=== PATIENT | female | born 1945 | race Caucasian/White ===

== ENCOUNTER 2023-09-14 09:47 | Emergency (ER) | payer MEDICARE, OTHER ==
[2023-09-14] MEDS ORDERED: Ketamine 200 MG/20 ML MDV IVPUSH ONE ×2 (10:21→10:22)
[2023-09-14] MEDS: LORazepam 2 MG/ML SDV IVPUSH ONE (10:29)
[2023-09-14 13:25] VITALS: BP 146/60; PULSE 56
== END 2023-09-14 13:29 | disposition home or self-care (01) ==
LOC: CC.ED 09:47
DX: S43.005A Unspecified dislocation of left shoulder joint, initial encounter (principal); E03.9 Hypothyroidism, unspecified; I10 Essential (primary) hypertension; Z88.5 Allergy status to narcotic agent; Z79.899 Other long term (current) drug therapy; W18.30XA Fall on same level, unspecified, initial encounter
CPT/HCPCS: 23650; 73020-LT; 73030-LT; 73060-LT; 73080-LT; 96374; 99283-25; J2060; J3490

== ENCOUNTER 2024-01-21 13:19 | Inpatient (IN) | payer MEDICARE, OTHER ==
[2024-01-21 13:32] LABS: BASOPHILS ABSOLUTE AUTO 0.03 10^3/uL (0.00-0.50); BASOPHILS PERCENT AUTO 0.4 % (0-1); EOSINOPHILS ABSOLUTE AUTO 0.24 10^3/uL (0.00-1.50); EOSINOPHILS PERCENT AUTO 3.2 % (0-6); HEMATOCRIT 38.3 % (37.0-47.0); HEMOGLOBIN 12.7 g/dL (12.0-16.0); IMMATURE GRAN ABSOLUTE AUTO 0.02 10^3/uL (0.00-0.49); IMMATURE GRAN PERCENT AUTO 0.3 % (0.0-4.9); LYMPHOCYTES ABSOLUTE AUTO 2.71 10^3/uL (0.60-5.00); LYMPHOCYTES PERCENT AUTO 36.6 % (24-44); MEAN CORPUSCULAR HEMOGLOBIN 31.5 pg (27.0-32.0); MEAN CORPUSCULAR HGB CONC 33.2 g/dL (32.0-36.0); MONOCYTES ABSOLUTE AUTO 0.72 10^3/uL (0.00-1.50); MONOCYTES PERCENT AUTO 9.7 % (0-10); NEUTROPHILS ABSOLUTE AUTO 3.68 x10^3/uL (1.80-8.00); NEUTROPHILS PERCENT AUTO 49.8 % (41-71); PLATELET COUNT,PLT 198 10^3/uL (150-400); RED BLOOD CELL COUNT 4.03 x10^6/uL (4.00-5.50); WHITE BLOOD CELL COUNT,WBC 7.4 10^3/uL (4.0-11.0)
[2024-01-21 13:36] LABS: APPEARANCE,URINE SLIGHTLY CLOUDY (CLEAR); BILIRUBIN,URINE NEGATIVE (NEGATIVE); COLOR,URINE YELLOW (YELLOW); GLUCOSE,URINE NEGATIVE (NEGATIVE); KETONES,URINE NEGATIVE (NEGATIVE); LEUKOCYTE ESTERASE,URINE SMALL (NEGATIVE); NITRITE,URINE NEGATIVE (NEGATIVE); OCCULT BLOOD,URINE NEGATIVE (NEGATIVE); PROTEIN,URINE NEGATIVE (NEGATIVE); UROBILINOGEN,URINE 0.2 EU/dL (0.2-1.0)
[2024-01-21 13:50] LABS: BACTERIA,URINE MODERATE /HPF (NOT SEEN); EPITHELIAL CELLS,URINE MANY /HPF (NOT SEEN); RBC,URINE 0-5 /HPF (0-5)
[2024-01-21 15:00] LABS: ALANINE AMINOTRANSFERASE,ALT 24 U/L (12-78); ALKALINE PHOSPHATASE 75 U/L (46-116); ASPARTATE AMNIOTRANSFERASE,AST 22 U/L (15-37); BILIRUBIN TOTAL 0.4 mg/dL (0.0-1.0); BLOOD UREA NITROGEN,BUN 20 mg/dL (7-18); CALCIUM 9.6 mg/dL (8.4-10.1); CARBON DIOXIDE,CO2 28 mmol/L (21-32); CREATININE 0.7 mg/dL (0.6-1.0); EST CRCL DRUG DOSING (CG) 53.23 mL/min; GLUCOSE RANDOM 115 mg/dL (75-99); PRO B-TYPE NATRIUR PEPT,BNPPRO 1478 pg/mL (0-1000); PROTEIN TOTAL,TP 7.4 g/dL (6.4-8.2); T4 FREE 1.5 ng/dL (0.8-1.6); TSH ULTRASENSITIVE 0.01 uIU/mL (0.36-5.60)
[2024-01-21 15:02] LABS: C-REACTIVE PROTEIN < 0.50 mg/dL (<=0.50); ESTIMATED GFR 89 mL/min (>=60)
[2024-01-21] MEDS ORDERED: Docusate Sodium 100 MG Cap PO PRN (15:25)
[2024-01-21] MEDS ORDERED: Acetaminophen 325 MG Tab PO PRN (15:25)
[2024-01-21] MEDS ORDERED: Polyethylene Glycol 3350 Powder 17 GM Packet PO PRN (15:25)
[2024-01-21] MEDS ORDERED: Ondansetron 4 MG Tab.DIS PO PRN (15:25)
[2024-01-21] MEDS ORDERED: Ondansetron 4 MG/2 ML SDV IV PRN (15:25)
[2024-01-21] MEDS: Diltiazem 25 MG/5 ML SDV IVPUSH ONE (15:40)
[2024-01-21] MEDS: Diltiazem 100 MG in Sodium Chloride 0.9% 100 ML IV SCH (16:09)
[2024-01-21] MEDS: Apixaban 5 MG Tab PO SCH (19:32)
[2024-01-21] MEDS: Diltiazem 120 MG Cap.CD PO SCH (22:48)
[2024-01-22 07:56] LABS: BASOPHILS ABSOLUTE AUTO 0.03 10^3/uL (0.00-0.50); BASOPHILS PERCENT AUTO 0.4 % (0-1); EOSINOPHILS ABSOLUTE AUTO 0.29 10^3/uL (0.00-1.50); HEMATOCRIT 35.9 % (37.0-47.0); HEMOGLOBIN 11.8 g/dL (12.0-16.0); IMMATURE GRAN ABSOLUTE AUTO 0.01 10^3/uL (0.00-0.49); IMMATURE GRAN PERCENT AUTO 0.1 % (0.0-4.9); LYMPHOCYTES ABSOLUTE AUTO 2.19 10^3/uL (0.60-5.00); LYMPHOCYTES PERCENT AUTO 30.2 % (24-44); MEAN CORPUSCULAR HEMOGLOBIN 31.4 pg (27.0-32.0); MEAN CORPUSCULAR HGB CONC 32.9 g/dL (32.0-36.0); MEAN CORPUSCULAR VOLUME 95.5 fL (83.0-97.0); MONOCYTES ABSOLUTE AUTO 0.63 10^3/uL (0.00-1.50); MONOCYTES PERCENT AUTO 8.7 % (0-10); NEUTROPHILS ABSOLUTE AUTO 4.11 x10^3/uL (1.80-8.00); NEUTROPHILS PERCENT AUTO 56.6 % (41-71); PLATELET COUNT,PLT 176 10^3/uL (150-400); RED BLOOD CELL COUNT 3.76 x10^6/uL (4.00-5.50); WHITE BLOOD CELL COUNT,WBC 7.3 10^3/uL (4.0-11.0)
[2024-01-22] MEDS ORDERED: Non-Formulary Medication 1 Each (Fish Oil/Omega-3 Fatty Acids [Fish Oil 1,000 Mg] 1 GM Cap PO SCH (08:00)
[2024-01-22] MEDS: Levothyroxine 112 MCG Tab PO SCH (08:03)
[2024-01-22 08:16] LABS: ALBUMIN 3.5 g/dL (3.4-5.0); BILIRUBIN TOTAL 0.4 mg/dL (0.0-1.0); CALCIUM 9.1 mg/dL (8.4-10.1); CREATININE 0.6 mg/dL (0.6-1.0); EST CRCL DRUG DOSING (CG) 62.1 mL/min; MAGNESIUM 1.7 mg/dL (1.8-2.4); POTASSIUM,K 4.1 mEq/L (3.5-5.0); PROTEIN TOTAL,TP 6.8 g/dL (6.4-8.2)
[2024-01-22] MEDS: Cholecalciferol (Vitamin D3) 25 MCG Tab PO SCH (08:22)
[2024-01-22] MEDS: Multivitamin Tab PO SCH (08:22)
[2024-01-22] MEDS: Vitamin E (dl-alpha-tocopherol acetate) 400 Unit Cap PO SCH (08:22)
[2024-01-22] MEDS: Beta-Carotene (Vitamin A) w/Vitamin C & E plus Minerals Tab PO SCH (08:23)
[2024-01-22] MEDS: Magnesium Oxide 400 MG Tab PO SCH (08:23)
[2024-01-22 11:18] LABS: CHLORIDE,CL 103 mEq/L (98-106); POTASSIUM,K 4.6 mEq/L (3.5-5.0); SODIUM,NA 139 mEq/L (136-145)
[2024-01-22 11:23] VITALS: BP 139/73; PULSE 69
[2024-01-22] MEDS ORDERED: Diltiazem 120 MG Cap.CD PO SCH (20:00)
== END 2024-01-22 11:00 | disposition home or self-care (01) | DRG 310 ==
LOC: CC.FCMC 13:19 → UNDOADMIN 14:07 → CC.MS 14:07 → UNDOADMIN 15:25
PROVIDERS: ADMIT Physician Assistant Medical; ATTEND Nurse Practitioner
DX: I48.91 Unspecified atrial fibrillation (principal); I10 Essential (primary) hypertension; Z66 Do not resuscitate; E03.9 Hypothyroidism, unspecified; Z79.01 Long term (current) use of anticoagulants; Z79.899 Other long term (current) drug therapy; Z88.5 Allergy status to narcotic agent; Z90.710 Acquired absence of both cervix and uterus; Z79.890 Hormone replacement therapy
CPT/HCPCS: 36415; 80053; 81001; 83735; 83880; 84439; 84443; 84484; 85025; 85730; 86140; 93005; 93010; A9270-GY; J3490

== ENCOUNTER 2025-02-01 09:25 | Emergency (ER) | payer MEDICARE, OTHER ==
[2025-02-01 09:43] LABS: BASOPHILS ABSOLUTE AUTO 0.03 10^3/uL (0.00-0.50); BASOPHILS PERCENT AUTO 0.2 % (0-1); EOSINOPHILS ABSOLUTE AUTO 0.05 10^3/uL (0.00-1.50); EOSINOPHILS PERCENT AUTO 0.4 % (0-6); IMMATURE GRAN PERCENT AUTO 0.8 % (0.0-4.9); LYMPHOCYTES ABSOLUTE AUTO 2.88 10^3/uL (0.60-5.00); LYMPHOCYTES PERCENT AUTO 23.2 % (24-44); MEAN CORPUSCULAR HEMOGLOBIN 32.5 pg (27.0-32.0); MEAN CORPUSCULAR HGB CONC 33.7 g/dL (32.0-36.0); MEAN CORPUSCULAR VOLUME 96.6 fL (83.0-97.0); MONOCYTES ABSOLUTE AUTO 0.87 10^3/uL (0.00-1.50); NEUTROPHILS ABSOLUTE AUTO 8.48 x10^3/uL (1.80-8.00); NEUTROPHILS PERCENT AUTO 68.4 % (41-71); PLATELET COUNT,PLT 164 10^3/uL (150-400); RED BLOOD CELL COUNT 2.06 x10^6/uL (4.00-5.50); WHITE BLOOD CELL COUNT,WBC 12.4 10^3/uL (4.0-11.0)
[2025-02-01 09:46] LABS: HEMATOCRIT 19.9 % (37.0-47.0); HEMOGLOBIN 6.7 g/dL (12.0-16.0)
[2025-02-01 09:56] LABS: ALBUMIN 2.9 g/dL (3.4-5.0); BILIRUBIN TOTAL 0.2 mg/dL (0.0-1.0); CALCIUM 8.3 mg/dL (8.4-10.1); CREATININE 0.5 mg/dL (0.6-1.0); EST CRCL DRUG DOSING (CG) 76.71 mL/min; INR 1.05 (0.92-1.18); MAGNESIUM 2.9 mg/dL (1.8-2.4); POTASSIUM,K 4.8 mEq/L (3.5-5.0); PROTEIN TOTAL,TP 5.9 g/dL (6.4-8.2); PTT,PARTIAL THROMBOPLSTIN TIME 22.3 SEC (20.0-30.0)
[2025-02-01] MEDS ORDERED: Sodium Chloride 0.9% 10 ML Syringe FLUSH PRN (10:02)
[2025-02-01] MEDS ORDERED: Sodium Chloride 0.9% 250 ML IV SCH (10:15)
[2025-02-01] MEDS: Pantoprazole 40 MG Vial IVPUSH ONE (10:27)
[2025-02-01] MEDS: Iopamidol 755 Mg/ML 100 ML Bottle IVPUSH ONE (10:40)
[2025-02-01] MEDS: Sodium Chloride 0.9% 250 ML IV SCH (10:52)
[2025-02-01] MEDS: Pantoprazole 40 MG Vial ONE (10:52)
[2025-02-01] MEDS: Pantoprazole 40 MG in Sodium Chloride 0.9% 100 ML IV SCH (11:20)
[2025-02-01 13:24] VITALS: BP 112/62; PULSE 128
== END 2025-02-01 13:55 ==
LOC: CC.ED 09:25
DX: I48.91 Unspecified atrial fibrillation (principal); K92.2 Gastrointestinal hemorrhage, unspecified; I10 Essential (primary) hypertension; E03.9 Hypothyroidism, unspecified; Z90.710 Acquired absence of both cervix and uterus; Z88.5 Allergy status to narcotic agent; Z79.01 Long term (current) use of anticoagulants; Z79.890 Hormone replacement therapy; Z79.899 Other long term (current) drug therapy
CPT/HCPCS: 36415; 36430; 71046; 74177; 80053; 82270; 82272; 83735; 84484; 85025; 85610; 85730; 86140; 86850; 86900; 86901; 86920; 86922; 93005; 96365; 96366; 96376; 99285-25; J2470; P9016; Q9967

== ENCOUNTER 2025-08-17 08:20 | Day surgery (SDC) | payer MEDICARE, OTHER ==
[~2025-08-17 08:20] MED LIST: Lactated Ringers 1,000 ML IV SCH
[2025-08-17] MEDS ORDERED: Propofol 200 MG/20 ML SDV ONE (08:48)
[2025-08-17] MEDS ORDERED: Ketamine 200 MG/20 ML MDV ONE (08:48)
[2025-08-17] MEDS ORDERED: Metoprolol Tartrate 5 MG/5 ML SDV ONE (08:48)
[2025-08-17] MEDS ORDERED: Flumazenil 0.1 MG/ML 5 ML MDV ONE (08:48)
[2025-08-17] MEDS ORDERED: Midazolam 1 MG/ML 2 ML SDV ONE (08:48)
[2025-08-17] MEDS ORDERED: fentaNYL 50 MCG/ML SDV ONE (08:48)
[2025-08-17] MEDS ORDERED: Phenylephrine 1% 10 MG/ML SDV ONE (08:48)
[2025-08-17 11:11] VITALS: BP 104/65; PULSE 62
== END 2025-08-17 10:15 | disposition home or self-care (01) ==
LOC: CC.SDS 08:20
PROVIDERS: ATTEND Family Medicine
DX: Z12.11 Encounter for screening for malignant neoplasm of colon (principal); K57.30 Diverticulosis of large intestine without perforation or abscess without bleeding; I48.91 Unspecified atrial fibrillation; E03.9 Hypothyroidism, unspecified; Z88.5 Allergy status to narcotic agent; Z79.01 Long term (current) use of anticoagulants; Z79.899 Other long term (current) drug therapy; Z79.890 Hormone replacement therapy
CPT/HCPCS: G0121; J2250; J2371; J2704; J3010; J3490